=== PATIENT | male | born 1980 | race Caucasian/White ===

== ENCOUNTER 2023-10-25 06:07 | Day surgery (SDC) | payer OTHER, SELFPAY ==
[2023-10-04 13:48] VITALS: BMI 25.7
[2023-10-25 06:49] VITALS: BMI 23.3
[2023-10-25 06:52] VITALS: BP 132/97; PULSE 89; RESP 18; TEMP 36.9; O2SAT 100
--- NOTE | 2023-10-25 07:08 | PM.HPGS ---
History of Present Illness History of Present Illness Consent: Risks, benefits, and alternatives have been discussed and questions answered. Patient agrees to proceed with procedure. Chief complaint: Neoplasm screening Narrative: Odin Rice is a 43 year old male presents for screening colonoscopy. Patient reports that his weight appetite and bowel movements are normal. Patient denies abdominal pain. Has had no bleeding. Family history is noncontributory. Review of Systems Review of Systems: All systems reviewed & are unremarkable except as noted in HPI and below PMFSH Past Medical History Medical History (Updated 10/25/23 @ 07:09 by Hung Madrigal MD) Actinic keratosis Surgical History Surgical History No pertinent past surgical history Family History Family History Father No problems noted. Mother No problems noted. Social History Social History Smoking status: Never smoker Alcohol intake: current Drinks per week: 8 Substance use: never Substance use type: does not use Do You Feel Safe in your Home?: Yes Lack of Transportation: No Lack of Food: Never True Current Housing: I Have Housing Concerned About Future Housing: No Difficulty Paying Gas/Electric Bills: No Difficulty Paying for Meds: No Currently Unemployed: No Education: Don't Know Difficulty w/ Childcare or Family Care: No Living arrangements: with family Occupation/Education: occupation Gender identity (if verbalized by the patient): Male Meds Home Medications and Allergies Home Medications Medication Instructions Recorded Confirmed Type finasteride 1 mg tablet (Propecia) 1 mg PO DAILY 04/20/20 10/25/23 History Allergies Allergy/AdvReac Type Severity Reaction Status Date / Time No Known Allergies Allergy Verified 10/25/23 06:55 Vital Signs Vital Signs - 24 hr 10/25/23 06:52 Temperature 98.5 F Pulse Rate 89 Respiratory Rate 18 Blood Pressure 132/97 H Pulse Oximetry 100 Oxygen Delivery Room Air Exam Narrative: Physical exam reveals patient signs stable. HEENT exam is unremarkable. Patient is anicteric. Lungs are clear to auscultation and to percussion is without murmur or extra sounds. Abdomen bowel sounds are present soft nontender with no organomegaly. Digital external rectal exam is normal. Assessment and Plan Assessment and plan (1) Encounter for screening colonoscopy: Code(s): Z12.11 - Encounter for screening for malignant neoplasm of colon Status: Acute Assessment and Plan: Patient presents for screening colonosccopy. He appears to be at average risk for colon polyps.
--- NOTE | 2023-10-25 07:35 | P.PNAN_ITS ---
Anes - Initial Pre Proc Eval Procedure: Operation Date: 10/25/23 08:00 Proposed Procedures p Screening Colonoscopy - Hung Madrigal MD Date/Time: 10/25/23 07:35 Surgeon: Hung Madrigal MD Pre Op Diagnosis: Neoplasm screening Patient Data Age: 43 Gender: M Height: 1.78 m Weight: 73.8 kg Last Vital Signs Temp 36.9 C 10/25/23 06:52 Pulse 89 10/25/23 06:52 Resp 18 10/25/23 06:52 BP 132/97 H 10/25/23 06:52 Pulse Ox 100 10/25/23 06:52 O2 Del Method Room Air 10/25/23 06:52 Allergies Allergy/AdvReac Type Severity Reaction Status Date / Time No Known Allergies Allergy Verified 10/25/23 06:55 Home Medications Medication Instructions Recorded Confirmed Type finasteride 1 mg tablet (Propecia) 1 mg PO DAILY 04/20/20 10/25/23 History Patient hx anesthesia problems: none Family hx anesthesia problems: none Results Review: All pre-operative results and documents have been reviewed as part of the pre-operative evaluation. COUNTS INCLUDE 234 BEDS AT THE [facility] Past Medical History Medical History Actinic keratosis Surgical History Surgical History No pertinent past surgical history Family History Family History Father No problems noted. Mother No problems noted. Social History Social History Smoking status: Never smoker Alcohol intake: current Drinks per week: 8 Substance use: never Substance use type: does not use Do You Feel Safe in your Home?: Yes Lack of Transportation: No Lack of Food: Never True Current Housing: I Have Housing Concerned About Future Housing: No Difficulty Paying Gas/Electric Bills: No Difficulty Paying for Meds: No Currently Unemployed: No Education: Don't Know Difficulty w/ Childcare or Family Care: No Living arrangements: with family Occupation/Education: occupation Gender identity (if verbalized by the patient): Male Anes - Eval Final PreProcedure Day of Procedure 10/25/23 07:35 Patient weight: normal Heart: regular rate and rhythm Lungs: clear to auscultation Neurological: alert and oriented Last oral intake: >/= 8 hours ASA classification: I Emergent: no Anesthetic plan: proceed Anesthesia type and monitoring: general GIVS and standard monitoring Results Review: All pre-operative results and documents have been reviewed as part of the pre- operative evaluation. Informed Consent: The patient's anesthetic plan and its attendant risks and benefits were discussed with the patient/family/POA. Questions were solicited and answers provided to the satisfaction of the patient/family/POA.
[2023-10-25] MEDS: LACTATED RINGERS 1,000 ML 150 ML IV CONT (07:42)
[2023-10-25 08:18] VITALS: BP 118/93; PULSE 92; RESP 16; O2SAT 100
[2023-10-25 08:28] VITALS: BP 123/96; PULSE 84; RESP 16; O2SAT 99
--- NOTE | 2023-10-25 08:29 | WPDANESPN ---
Anes - Prog Note Post-Op Date/Time: 10/25/23 08:29 Cardiovascular status: normal Respiratory status: normal Airway patency: baseline Mental status: baseline Post-Op hydration status: normal Vital Signs: Last Vital Signs Temp 36.9 C 10/25/23 06:52 Pulse 84 10/25/23 08:28 Resp 16 10/25/23 08:28 BP 123/96 H 10/25/23 08:28 Pulse Ox 100 10/25/23 08:18 O2 Del Method Room Air 10/25/23 08:28 Pain Score (VAS): 0 I/O: Intake & Output 10/24/23 10/25/23 10/25/23 23:59 07:59 15:59 Intake Total 200 Balance 200 Patient Feedback: Patient satisfied with anesthetic care.
[2023-10-25 08:38] VITALS: BP 124/100; PULSE 77; RESP 20; O2SAT 100
== END 2023-10-25 08:44 | disposition home or self-care (01) ==
PROVIDERS: PCP Physician Assistant Medical; Visit Provider Internal Medicine Gastroenterology
PROC: 0DJD8ZZ Inspection of Lower Intestinal Tract, Via Natural or Artificial Opening Endoscopic (ICD-10-PCS; CPT 45378; principal; 2023-10-25 08:00)
DX: Z12.11 Encounter for screening for malignant neoplasm of colon (principal); K64.8 Other hemorrhoids
CPT/HCPCS: 45378